=== PATIENT | female | born 1960 | race Caucasian/White ===

== ENCOUNTER 2016-08-22 13:36 | Emergency (ER) | payer OTHER ==
[2016-08-22 13:42] VITALS: TEMP 98.1
--- NOTE | 2016-08-22 13:52 | CPEKG ---
Heart Rate: 113 RR Interval: 531 P-R Interval: 184 QRSD Interval: 76 QT Interval: 320 QTC Interval: 439 P [place]: 62 QRS [place]: 16 T Wave [place]: 16 EKG Severity - OTHERWISE NORMAL ECG - EKG Impression: SINUS TACHYCARDIA Electronically Signed By: Robbie Loera 22-Aug-2016 14:25:18
[2016-08-22 14:07] LABS: % IMMATURE GRANULYOCYTES 0.1 % (0.0-1.1); ABSOLUTE IMMATURE GRANULOCYTES 0.01 10^3/uL (0.00-0.10); ADD DIFF? NO; ADD MORPH? NO; ADD SCAN? NO; ATYPICAL LYMPHOCYTE FLAG 10 (0-99); FRAGMENT RBC FLAG 0 (0-99); HEMATOCRIT 45.7 % (38.0-47.0); HEMOGLOBIN 15.6 g/dL (12.6-16.3); LEFT SHIFT FLG 0 (0-99); LIPEMIA HEMOLYSIS FLAG 90 (0-99); MEAN CELL HEMOGLOBIN 33.2 pg (27.9-34.1); MEAN CELL HEMOGLOBIN CONCENTR. 34.1 g/dL (32.4-36.7); MEAN CELL VOLUME 97.2 fL (81.5-99.8); MEAN PLATELET VOLUME 8.7 fL (8.7-11.7); PLATELET CLUMPS FLAG 0 (0-99); PLATELET COUNT 376 10^3/uL (150-400); RED CELL DISTRIBUTION WIDTH 12.9 % (11.5-15.2)
[2016-08-22 14:24] LABS: ANION GAP 12 mEq/L (8-16); CALCIUM 10.3 mg/dL (8.5-10.4); CARBON DIOXIDE 23 mEq/l (22-31); CHLORIDE 103 mEq/L (97-110); CREATININE 0.7 mg/dL (0.6-1.0); GLOMERULAR FILTRATION RATE > 60; GLUCOSE 116 mg/dL (70-100); POTASSIUM 4.1 mEq/L (3.5-5.2); SODIUM 138 mEq/L (134-144)
--- NOTE | 2016-08-22 14:24 | EDPHY ---
H & P Stated Complaint: Chest tightness intermittently for several weeks Time Seen by Provider: 08/22/16 13:38 HPI/ROS: CHIEF COMPLAINT: Dyspnea, chest tightness HISTORY OF PRESENT ILLNESS: The patient presents to the emergency department with several weeks of intermittent dyspnea and chest tightness. The patient reports a history of atraumatic left knee pain several weeks ago. She did see her primary care provider who attributed the symptoms to a possible sprain. The patient denies fever cough or congestion. She reports that today her symptoms worsened. The patient denies pleuritic chest pain. She denies any ongoing knee pain. Patient has no history of cardiac disease. The patient denies recent travel outside the [place] or prolonged immobilization. REVIEW OF SYSTEMS: A comprehensive 10 point review of systems is otherwise negative aside from elements mentioned in the history of present illness. Source: Patient Exam Limitations: No limitations - Personal History Current Tetanus Diphtheria and Acellular Pertussis (TDAP): Yes - Medical/Surgical History Other PMH: HTN - Social History Smoking Status: Never smoked - Physical Exam Exam: General Appearance: Alert, no distress Eyes: Pupils equal and round no pallor or injection ENT, Mouth: Mucous membranes moist Respiratory: There are no retractions, lungs are clear to auscultation Cardiovascular: Regular rate and rhythm Gastrointestinal: Abdomen is soft and nontender, no masses, bowel sounds normal Neurological: A&O, normal motor function, normal sensory exam, normal cranial nerves Skin: Warm and dry, no rashes Musculoskeletal: Neck is supple nontender Extremities: symmetrical, full range of motion Constitutional: Initial Vital Signs Temperature (C) 36.7 C 08/22/16 13:37 Heart Rate 101 H 08/22/16 13:37 Respiratory Rate 18 08/22/16 13:37 Blood Pressure 139/107 H 08/22/16 13:37 O2 Sat (%) 94 08/22/16 13:37 O2 Delivery Mode Nasal Cannula O2 (L/minute) 2 Allergies/Adverse Reactions: some B P med Allergy (Unknown, Uncoded 08/22/16 13:39) Home Medications: Medication Instructions Recorded Aspirin [Aspirin 81mg (*)] 81 mg PO DAILY 08/22/16 Lisinopril [Zestril 20 mg (*)] 20 mg PO 08/22/16 Medical Decision Making - Diagnostics EKG Interpretation: EKG: Complete interpretation has been separately recorded in the [facility] archive. Summary impression: Sinus tachycardia, rate 113 Imaging: CT pulmonary angiogram: Negative for aortic dissection, pulmonary embolism, pneumonia, pneumothorax or other explanation for chest pain. Study results reported to me by Dr. Narendra Kaur ED Course/Re-evaluation: The patient presents to the ED for weeks of intermittent chest pain and dyspnea. The patient did have a slightly elevated D-dimer but has a negative CT pulmonary angiogram. The patient's EKG demonstrates no evidence of ischemia and her troponin is normal. The patient does endorse some symptoms of anxiety. The patient was kept on a radiation monitor throughout her stay in the emergency department at this point time I have a low suspicion for acute coronary syndrome. Patient's chest CT scan demonstrates no evidence of heart failure, the patient' s proBNP level is negative. The patient was re-evaluated by myself at 3:30 p.m. and is in no acute distress. The patient's vital signs are stable. At this point time I do feel that she can be discharged home. Differential Diagnosis: Differential diagnosis considered includes pulmonary embolism, acute coronary syndrome, anxiety, dehydration, metabolic abnormality - Data Points Laboratory Results: Laboratory Results 08/22/16 13:52 08/22/16 13:52 08/22/16 13:52 WBC 8.10 10^3/uL (3.80-9.50) RBC 4.70 10^6/uL (4.18-5.33) Hgb 15.6 g/dL (12.6-16.3) Hct 45.7 % (38.0-47.0) MCV 97.2 fL (81.5-99.8) MCH 33.2 pg (27.9-34.1) MCHC 34.1 g/dL (32.4-36.7) RDW 12.9 % (11.5-15.2) Plt Count 376 10^3/uL (150-400) MPV 8.7 fL (8.7-11.7) Neut % (Auto) 52.9 % (39.3-74.2) Lymph % (Auto) 34.7 % (15.0-45.0) [place] % (Auto) 10.0 % (4.5-13.0) Eos % (Auto) 1.7 % (0.6-7.6) Baso % (Auto) 0.6 % (0.3-1.7) Nucleat RBC Rel Count 0.0 % (0.0-0.2) Absolute Neuts (auto) 4.28 10^3/uL (1.70-6.50) Absolute Lymphs (auto) 2.81 10^3/uL (1.00-3.00) Absolute Monos (auto) 0.81 H 10^3/uL (0.30-0.80) Absolute Eos (auto) 0.14 10^3/uL (0.03-0.40) Absolute Basos (auto) 0.05 10^3/uL (0.02-0.10) Absolute Nucleated RBC 0.00 10^3/uL (0-0.01) Immature Gran % 0.1 % (0.0-1.1) Immature Gran # 0.01 10^3/uL (0.00-0.10) D-Dimer 0.56 H ug/mLFEU (0.00-0.50) Sodium 138 mEq/L (134-144) Potassium 4.1 mEq/L (3.5-5.2) Chloride 103 mEq/L (97-110) Carbon Dioxide 23 mEq/l (22-31) Anion Gap 12 mEq/L (8-16) BUN 15 mg/dL (7-23) Creatinine 0.7 mg/dL (0.6-1.0) Estimated GFR > 60 Glucose 116 H mg/dL (70-100) Calcium 10.3 mg/dL (8.5-10.4) Troponin I < 0.012 ng/mL (0-0.034) NT-Pro-B Natriuret Pep 60 pg/mL (0-125) Departure - Departure Disposition: Home, Routine, Self-Care Clinical Impression: Chest pain Condition: Good Instructions: Chest Pain (ED) Additional Instructions: 1. Based upon the testing done in the Emergency Department today we see no evidence of a heart attack. 2. We are unable to fully exclude coronary artery disease based upon the testing available in the Emergency Department. 3. For this reason, we would like you to be seen by cardiology for consideration of additional testing within the next 3 days. 4. Please contact the account development manager you have been referred to schedule this appointment as soon as possible. Their offices are typically open from 8:30am- 5pm M-F. 5. Please return to the Emergency Department immediately for any recurrent chest pain, difficulty breathing or other concerns. Referrals: Aidan Funes MD [Medical Doctor] - As per Instructions
[2016-08-22 14:35] LABS: TROPONIN I < 0.012 ng/mL (0-0.034)
[2016-08-22] MEDS ORDERED: IOPAMIDOL (ISOVUE 370) 100 ML BTL IV ONE (14:56)
--- NOTE | 2016-08-22 15:31 | CT ---
CT Chest Angiogram Comparison: None Indication: Chest pain. Possible PE. D-dimer 0.56. Technique: Thinly collimated multidetector helical CT imaging was performed through the chest while 90 mL of Isovue-370 were injected intravenously without complication. The images were then transferr ed to an independent workstation where multiplanar reconstructions were performed. Dose reduction guillaume hniques were utilized. Findings: CT Chest Angiogram: The pulmonary arterial system is well opacified. No intraluminal filling defect s to suggest acute or chronic thrombopulmonary embolic disease. The thoracic aorta is normal caliber . No aneurysm or dissection. CT Chest: The lungs are clear. No pulmonary nodule, mass, or enlarged lymph nodes. Heart size is nor mal. No pericardial or pleural effusion. Mild degenerative change thoracic spine. The imaged portion of the upper abdomen is negative. Impression: 1. No evidence of thrombopulmonary embolic disease. 2. Mild degenerative change thoracic spine. Results called and discussed with Robbie Loera at 08/22/2016 15:29
[2016-08-22 15:47] VITALS: BP 149/116; PULSE 106; RESP 14; O2SAT 92
== END 2016-08-22 15:47 | disposition home or self-care (01) ==
DX: R07.9 Chest pain, unspecified (principal); I10 Essential (primary) hypertension; Z79.82 Long term (current) use of aspirin
CPT/HCPCS: Q9967

== ENCOUNTER 2016-08-31 11:18 | Inpatient (IN) | payer OTHER ==
--- NOTE | 2016-08-31 11:33 | CPEKG ---
Heart Rate: 112 RR Interval: 536 P-R Interval: 164 QRSD Interval: 80 QT Interval: 316 QTC Interval: 432 P [place]: 59 QRS [place]: 4 T Wave [place]: 18 EKG Severity - ABNORMAL ECG - EKG Impression: SINUS TACHYCARDIA EKG Impression: VENTRICULAR PREMATURE COMPLEX EKG Impression: PROBABLE LEFT ATRIAL ABNORMALITY EKG Impression: BORDERLINE R WAVE PROGRESSION, ANTERIOR LEADS EKG Impression: MINIMAL ST DEPRESSION, ANTEROLATERAL LEADS EKG Impression: similar to previous Electronically Signed By: Lázaro Reddy 31-Aug-2016 11:43:11
[2016-08-31] MEDS ORDERED: NS 500 ML IV ONE (11:38)
[2016-08-31 11:47] LABS: % IMMATURE GRANULYOCYTES 0.3 % (0.0-1.1); ABSOLUTE IMMATURE GRANULOCYTES 0.02 10^3/uL (0.00-0.10); ADD DIFF? NO; ADD MORPH? NO; ADD SCAN? NO; ATYPICAL LYMPHOCYTE FLAG 0 (0-99); FRAGMENT RBC FLAG 0 (0-99); HEMATOCRIT 48.5 % (38.0-47.0); HEMOGLOBIN 16.4 g/dL (12.6-16.3); LEFT SHIFT FLG 0 (0-99); LIPEMIA HEMOLYSIS FLAG 90 (0-99); MEAN CELL HEMOGLOBIN 34.1 pg (27.9-34.1); MEAN CELL HEMOGLOBIN CONCENTR. 33.8 g/dL (32.4-36.7); MEAN CELL VOLUME 100.8 fL (81.5-99.8); PLATELET CLUMPS FLAG 10 (0-99); PLATELET COUNT 356 10^3/uL (150-400); RED BLOOD CELL COUNT 4.81 10^6/uL (4.18-5.33); RED CELL DISTRIBUTION WIDTH 13.2 % (11.5-15.2)
[2016-08-31] MEDS ORDERED: IOPAMIDOL (ISOVUE 370) 100 ML BTL IV ONE (11:48)
--- NOTE | 2016-08-31 11:49 | EDPHY ---
H & P Stated Complaint: chest pressure/seen last week for same Source: Patient, Old records Exam Limitations: No limitations - Personal History Current Tetanus/Diphtheria Vaccine: Yes - Medical/Surgical History Hx Asthma: No Hx Chronic Respiratory Disease: No Hx Diabetes: No Hx Cardiac Disease: No Hx Renal Disease: No Hx Cirrhosis: No Hx Alcoholism: No Hx HIV/AIDS: No Hx Splenectomy or Spleen Trauma: No Other PMH: HTN - Social History Smoking Status: Never smoked HPI/ROS: CHIEF COMPLAINT: Chest Pain HISTORY OF PRESENT ILLNESS: Chest pressure FAMILY HISTORY CARDIAC: sudden onset of chest pressure this morning at 6:30 a.m.. She was walking her dog. It was a moderate pain, radiated to her back. Was worse with exertion. Some nausea and diaphoresis. No vomiting. Some shortness of breath. She feels as though there is congestion in her chest. She had no numbness or tingling. No abdominal or urinary complaints. She was feeling flushed at the time. She was seen here on August 22 for the same complaint and discharged home with instructions to follow up with cinder pit worker. She has an appointment on September [address] Cortez but has not yet seen a cinder pit worker. No other associated complaints or modifying factors. hypertension without diabetes or known coronary artery disease. PRIOR CARDIAC WORKUP: ED only, August 22 REVIEW OF SYSTEMS: Ten systems reviewed and are negative unless otherwise noted in the HPI EXAMINATION: General Appearance: Alert, no distress , flushed Head: normocephalic, atraumatic Eyes: Pupils equal and round, no conjunctival pallor or injection ENT, Mouth: Mucous membranes moist. Uvula midline. No lesions or edema. Neck: Normal inspection, supple, non-tender Respiratory: Lungs are clear in the right field. Lungs are mildly diminished on the left. No wheezing, rhonchi or crackles. Cardiovascular: Tachycardic rate with regular rhythm. Gastrointestinal: Abdomen is soft and nontender . No CVA tenderness. Back: non-tender, no bony abnormalities Neurological: A&O, nonfocal, normal gait , strength symmetric in all limbs. Skin: Warm and dry, no rash Extremities: Nontender, no pedal edema Psychiatric: Mood and affect normal DIFFERENTIAL DIAGNOSES: Including but not limited to in no particular order: Acute Chest Pain, ACS, Stable Angina, Pneumonia, PE, duodenitis, gastritis, esophagitis, GERD MDM: 11:45 a.m. chest pain with some pressure and worse with exertion. The patient is hemodynamically stable in no acute distress. She is tachycardic. EKG has been reviewed by Dr. Reddy and myself. There is no acute finding. She does have some mild ST depression in the anterolateral leads, this is unchanged from previous EKG on August 22. Given her tachycardia and symptoms, we have ordered CT scan of the chest rule out PE. I-STAT has been done at bedside with a normal creatinine of 0.7, and she will be taken to CT as soon as possible. 12:30 p.m. laboratory studies are within normal limits. The CT scan of the chest has been performed but the interpretation is pending at this time. 12:45 p.m. notified by radiologist Dr. Cain that there is no evidence of PE on the CT scan of the chest. There is mild cardiomegaly. No other acute findings. Patient remains tachycardic but otherwise stable. Mild hypertension. Chest pain is present but unchanged. Labs are negative. Will proceed with admission and echocardiography 1:00 p.m. case discussed with hospitalist and she will be admitted to their care. Echo is pending at this time 2:00 p.m case discussed with [facility] and they will interpret the echocardiogram and see the patient in her inpatient room. EKG: Interpreted by Dr. Reddy rate is 112 beats per minute, sinus tachycardia. PVC noted. Mild ST depression in V3 through V6 unchanged from August [address] elevation. T-wave inversion only in AVR. Interpretation: Sinus tachycardia, anterolateral ST depression, PC SUPERVISION: Patient was evaluated in conjunction with the supervising physician. Please see their note for details. (Miguel Trent) Constitutional: Initial Vital Signs Temperature (C) 36.7 C 08/31/16 11:21 Heart Rate 102 H 08/31/16 11:21 Respiratory Rate 20 08/31/16 11:21 Blood Pressure 156/120 H 08/31/16 11:21 O2 Sat (%) 96 08/31/16 11:21 O2 Delivery Mode Room Air O2 (L/minute) 2 Allergies/Adverse Reactions: some B P med Allergy (Unknown, Uncoded 08/31/16 11:20) Home Medications: Medication Instructions Recorded Aspirin [Aspirin 81mg (*)] 81 mg PO HS 08/22/16 Lisinopril [Zestril 20 mg (*)] 20 mg PO DAILY 08/22/16 ALPRAZolam [Xanax 0.5 MG (*)] 0.5 mg PO DAILY PRN 08/31/16 Cholecalciferol Vit D3 [Vitamin D3 5,000 units PO HS 08/31/16 (*)] Medical Decision Making Differential Diagnosis: Differential diagnosis includes though it is not limited to pneumonia, pneumothorax, pulmonary embolism, aortic dissection, pericarditis, acute coronary syndrome. (Mey Cano) Other Provider: 1302: This patient was seen and examined by me.On exam she is alert and anxious. Lungs are clear to auscultation and heart- regular tachycardia. EKG reviewed by me reveals no evidence of ischemia. I agree with the PA's assessment. (Mey Cano) - Data Points Laboratory Results: Laboratory Results 08/31/16 11:30 08/31/16 11:30 08/31/16 08/31/16 08/31/16 11:38 11:30 11:30 WBC RBC Hgb POC Hgb 16.0 gm/dL H gm/dL (12.3-15.9) Hct POC Hct 47 % % (35.5-47.5) MCV MCH MCHC RDW Plt Count MPV Neut % (Auto) Lymph % (Auto) [place] % (Auto) Eos % (Auto) Baso % (Auto) Nucleat RBC Rel Count Absolute Neuts (auto) Absolute Lymphs (auto) Absolute Monos (auto) Absolute Eos (auto) Absolute Basos (auto) Absolute Nucleated RBC Immature Gran % Immature Gran # PT INR APTT POC Sodium 139 mEq/L mEq/L (134-144) Sodium 142 mEq/L mEq/L (134-144) POC Potassium 4.7 mEq/L mEq/L (3.3-5.0) Potassium 4.4 mEq/L mEq/L (3.5-5.2) POC Chloride 104 mEq/L mEq/L (96-108) Chloride 103 mEq/L mEq/L (97-110) Carbon Dioxide 26 mEq/l mEq/l (22-31) Anion Gap 13 mEq/L mEq/L (8-16) POC BUN 16 mg/dL mg/dL (7-23) BUN 13 mg/dL mg/dL (7-23) Creatinine 0.8 mg/dL mg/dL (0.6-1.0) POC Creatinine 0.7 mg/dL mg/dL (0.6-1.2) Estimated GFR > 60 Glucose 100 mg/dL mg/dL (70-100) POC Glucose 99 mg/dL mg/dL (70-100) Calcium 9.9 mg/dL mg/dL (8.5-10.4) Total Bilirubin 0.9 mg/dL mg/dL (0.1-1.4) Conjugated Bilirubin 0.4 mg/dL mg/dL (0.0-0.5) Unconjugated Bilirubin 0.5 mg/dL mg/dL (0.0-1.1) AST 45 IU/L IU/L (14-46) ALT 60 IU/L H IU/L (9-52) Alkaline Phosphatase 110 IU/L IU/L (38-126) Creatine Kinase 84 IU/L IU/L (0-156) CK-MB (CK-2) Fraction 1.21 ng/mL ng/mL (0-3.19) Troponin I < 0.012 ng/mL ng/mL (0-0.034) NT-Pro-B Natriuret Pep 101 pg/mL pg/mL (0-125) Total Protein 8.6 g/dL H g/dL (6.3-8.2) Albumin 4.6 g/dL g/dL (3.5-5.0) Lipase 148.0 IU/L IU/L (23-300) TSH 1.790 uIU/mL uIU/mL (0.465-4.680) 08/31/16 08/31/16 11:30 11:30 WBC 7.65 10^3/uL 10^3/uL (3.80-9.50) RBC 4.81 10^6/uL 10^6/uL (4.18-5.33) Hgb 16.4 g/dL H g/dL (12.6-16.3) POC Hgb Hct 48.5 % H % (38.0-47.0) POC Hct MCV 100.8 fL H fL (81.5-99.8) MCH 34.1 pg pg (27.9-34.1) MCHC 33.8 g/dL g/dL (32.4-36.7) RDW 13.2 % % (11.5-15.2) Plt Count 356 10^3/uL 10^3/uL (150-400) MPV 9.0 fL fL (8.7-11.7) Neut % (Auto) 60.3 % % (39.3-74.2) Lymph % (Auto) 27.6 % % (15.0-45.0) [place] % (Auto) 9.4 % % (4.5-13.0) Eos % (Auto) 1.6 % % (0.6-7.6) Baso % (Auto) 0.8 % % (0.3-1.7) Nucleat RBC Rel Count 0.0 % % (0.0-0.2) Absolute Neuts (auto) 4.62 10^3/uL 10^3/uL (1.70-6.50) Absolute Lymphs (auto) 2.11 10^3/uL 10^3/uL (1.00-3.00) Absolute Monos (auto) 0.72 10^3/uL 10^3/uL (0.30-0.80) Absolute Eos (auto) 0.12 10^3/uL 10^3/uL (0.03-0.40) Absolute Basos (auto) 0.06 10^3/uL 10^3/uL (0.02-0.10) Absolute Nucleated RBC 0.00 10^3/uL 10^3/uL (0-0.01) Immature Gran % 0.3 % % (0.0-1.1) Immature Gran # 0.02 10^3/uL 10^3/uL (0.00-0.10) PT 12.3 SEC SEC (12.0-15.0) INR 0.92 (0.83-1.16) APTT 27.0 SEC SEC (23.0-38.0) POC Sodium Sodium POC Potassium Potassium POC Chloride Chloride Carbon Dioxide Anion Gap POC BUN BUN Creatinine POC Creatinine Estimated GFR Glucose POC Glucose Calcium Total Bilirubin Conjugated Bilirubin Unconjugated Bilirubin AST ALT Alkaline Phosphatase Creatine Kinase CK-MB (CK-2) Fraction Troponin I NT-Pro-B Natriuret Pep Total Protein Albumin Lipase TSH Medications Given: Discontinued Medications Sodium Chloride (Ns) 500 mls @ 0 mls/hr IV ONCE ONE PRN Reason: As Directed Stop: 08/31/16 11:39 Last Admin: 08/31/16 11:49 Dose: 500 mls Morphine Sulfate (Morphine) 6 mg IVP EDNOW ONE Stop: 08/31/16 13:13 Last Admin: 08/31/16 13:27 Dose: 6 mg Ondansetron HCl (Zofran) 4 mg IVP EDNOW ONE Stop: 08/31/16 13:14 Last Admin: 08/31/16 13:27 Dose: 4 mg Point of Care Test Results: 08/31/16 11:38 POC Sodium 139 POC Potassium 4.7 POC Chloride 104 POC BUN 16 POC Creatinine 0.7 POC Glucose 99 Departure - Departure Disposition: [facility] Inpatient Acute Clinical Impression: Chest pain Qualifiers: Chest pain type: precordial pain Qualified Code(s): R07.2 - Precordial pain Condition: Fair
[2016-08-31 12:00] LABS: ALANINE AMINOTRANSFERASE 60 IU/L (9-52); ALBUMIN 4.6 g/dL (3.5-5.0); ALKALINE PHOSPHATASE 110 IU/L (38-126); ANION GAP 13 mEq/L (8-16); ASPARTATE AMINOTRANSFERASE 45 IU/L (14-46); BILIRUBIN,TOTAL 0.9 mg/dL (0.1-1.4); BILIRUBIN-CONJUGATED 0.4 mg/dL (0.0-0.5); BILIRUBIN-UNCONJUGATED 0.5 mg/dL (0.0-1.1); CALCIUM 9.9 mg/dL (8.5-10.4); CARBON DIOXIDE 26 mEq/l (22-31); CHLORIDE 103 mEq/L (97-110); CREATININE 0.8 mg/dL (0.6-1.0); GLOMERULAR FILTRATION RATE > 60; GLUCOSE 100 mg/dL (70-100); POTASSIUM 4.4 mEq/L (3.5-5.2); SODIUM 142 mEq/L (134-144); TOTAL PROTEIN 8.6 g/dL (6.3-8.2)
[2016-08-31 12:02] LABS: INR 0.92 (0.83-1.16); PROTIME(PATIENT) 12.3 SEC (12.0-15.0)
[2016-08-31 12:12] LABS: CREATINE KINASE-MB FRACTION 1.21 ng/mL (0-3.19); TROPONIN I < 0.012 ng/mL (0-0.034)
[2016-08-31] MEDS ORDERED: ONDANSETRON 4 MG/2 ML VIAL IVP ONE (13:13)
--- NOTE | 2016-08-31 14:07 | ECHO ---
[id number] + + [address] : : [place] [address] : : [phone] + Adult Echocardiographic Report + -----+ :Name: Izabella CHAVEZ Date: 08/31/2016 01:43 PM : : Hospital Admission Number: [id number]: ER: :: 1960 Gender: Female Height: 65 in : :Age: 56 yrs Race: WH Weight: 190 lb : :Reason For Study: Eval LV Fx : : BSA: 1.9 meters 2 : :History: Chest Pain, SVT, Cardiomegally on CT : + -----+ MMode/2D Measurements \T\ Calculations IVSd: 1.3 cm LVIDd: 4.2 cm FS: 41.8 % Ao root diam: 2.7 cm LVPWd: 1.2 cm LVIDs: 2.4 cm EDV(Teich): 76.8 ml ACS: 1.6 cm ESV(Teich): 20.6 ml EF(Teich): 73.2 % Normal Measurement Values: + + :LVIDd (3.5-5.7cm) IVSd (0.6-1.1cm) LVPWd (0.6-1.1cm) Aortic Root (2.0-3.7cm)Left Atrium (1.5-4.0cm): :LV Vol(d) (76-115ml) LV Vol(s) (29-48ml) Ejec Fraction (50-65%)PV Lm (0.6- 1.2m/s) TV Lm (0.4-1.0m/s) : :MV E Lm (0.8-1.0m/s)MV A Lm (0.3-1.0m/s)LVOT Lm (0.7-1.2m/s) Asc Ao Lm ( 0.9-1.8m/s) : + + Doppler Measurements \T\ Calculations MV E max lm: Ao V2 max: LV V1 max: PA V2 max: 64.2 cm/sec 160.0 cm/sec 88.8 cm/sec 115.0 cm/sec MV A max lm: Ao max PG: LV V1 max PG: PA max P.3 mmHg 94.8 cm/sec 10.2 mmHg 3.2 mmHg MV E/A: 0.68 Left Ventricle The left ventricle is normal in size. There is mild to moderate concentric left ventricular hypertrophy. The left ventricular ejection fraction is normal. There is Doppler evidence for diastolic dysfunction. Tachycardia. No regional wall motion abnormalities noted. Right Ventricle The right ventricle is normal in size and function. Atria The left atrial size is normal. Right atrial size is normal. Mitral Valve The mitral valve is normal in structure and function. There is no evidence of mitral valve prolapse. There is no mitral valve stenosis. There is no mitral regurgitation noted. Tricuspid Valve Normal tricuspid valve. No tricuspid regurgitation. Aortic Valve The aortic valve is normal in structure and function. The aortic valve is trileaflet. There is no aortic stenosis. There is no aortic insufficiency. Pulmonic Valve The pulmonic valve is normal in structure and function. There is no pulmonic valvular regurgitation. Great Vessels The aortic root is normal size. Pericardium/Pleural There is no pericardial effusion. Conclusion A complete two-dimensional transthoracic echocardiogram was performed (2D, M-mode, Doppler and color flow Doppler). There is mild to moderate concentric left ventricular hypertrophy. The left ventricular ejection fraction is normal. There is Doppler evidence for diastolic dysfunction. Tachycardia No regional wall motion abnormalities noted. The right ventricle is normal in size and function. The left atrial size is normal. The mitral valve is normal in structure and function. Normal tricuspid valve The aortic valve is normal in structure and function. The aortic valve is trileaflet. There is no pericardial effusion. Final Reading Physician: Albino Briones signed on 08/31/2016 02:04 PM Ordering Physician: Miguel Trent Performed By: Kyler Traore, CS
[2016-08-31] MEDS ORDERED: ACETAMINOPHEN 325 MG TAB PO PRN (15:32)
[2016-08-31 16:35] LABS: PHENCYCLIDINE URINE BCH < 6 ng/ml (NEGATIVE); PHENCYCLIDINE URINE BCH NEGATIVE (NEGATIVE); TETRAHYDROCANNABINOL URINE < 5 ng/mL (NEGATIVE); TETRAHYDROCANNABINOL URINE NEGATIVE (NEGATIVE)
--- NOTE | 2016-08-31 16:46 | CPEKG ---
Heart Rate: 102 RR Interval: 588 P-R Interval: 172 QRSD Interval: 76 QT Interval: 328 QTC Interval: 428 P [place]: 58 QRS [place]: 19 T Wave [place]: 16 EKG Severity - OTHERWISE NORMAL ECG - EKG Impression: SINUS TACHYCARDIA EKG Impression: VENTRICULAR PREMATURE COMPLEX Electronically Signed By: Kashif Crandall 31-Aug-2016 19:52:32
--- NOTE | 2016-08-31 19:55 | GCON ---
[f rep st] CONSULTATION CARDIOLOGY CONSULTATION. SUPERVISING CONSTRUCTION RIGGER: Dr. Justyn Cortez. INDICATION FOR CARDIOLOGY CONSULTATION: Chest pressure, ongoing history of hypertension. HISTORY OF PRESENT ILLNESS: The patient is a 56-year-old female with a reported past history of anxiety and hypertension. She reports ongoing history of anxiety with shortness of breath. Reporting recently experiencing midsternal chest pressure, with tingling in her hands. She reports usually it comes on spontaneously, lasts for few minutes and dissipates. This had concerned her. She reported her first episode has been happening for week or 2 , on August 22, this had concerned her so much, that she did come to the emergency department here at [facility]. There she underwent an electrocardiogram which showed sinus tachycardia with no significant ST or T- wave abnormalities. She did undergo CTA of the chest which was negative for pulmonary embolism, normal thoracic aorta with no aneurysm or dissection. She had laboratory studies drawn, noting normal troponin level. After her workup, her symptoms subsided, she was discharged home and asked to follow up with her PCP and Cardiology. Waiting for appointment, she reports that she has had a few more episodes of this chest pressure, with mild shortness of breath. Reporting worst episode happened today. She describes the pain as a pressure midsternal. She denies any associated symptoms of nausea, diaphoresis, or shortness of breath. Does report tingling in the left hand when symptoms recur. She reported today symptoms started after she had been resting from walking. She reported no symptoms during exertion. She denies of any history of palpitations, orthopnea, PND, edema, near-syncope, or syncopal events. Denies of any symptoms suggestive of TIA or CVA. Denies of any recent fevers, chills, night sweats, or cold. She reports symptoms usually start spontaneously. Cardiac risk factors, the patient reports hypertension, unsure of her cholesterol status, and denies of any significant family history of coronary artery disease. PAST MEDICAL HISTORY: The patient reports hypertension, anxiety. The patient reports that she had been evaluated for thrombocythemia, had seen Hematology, and when evaluated, the platelet count was within normal limits, advised to stay on aspirin therapy. FAMILY HISTORY: Patient denies of any significant family history of coronary artery disease. SOCIAL HISTORY: The patient reports she is . She has 2-3 drinks a week. Denies of any smoking history. 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 Denies of any tobacco use, denies of any illicit drug use. ALLERGIES: Patient reports she is allergic to some BP medications but is uncertain. HOME MEDICATIONS: 1. Lisinopril 20 mg p.o. daily. 2. Vitamin D 5000 units p.o. h.s. 3. Aspirin 81 mg p.o. daily. 4. Xanax 0.5 mg p.o. daily. REVIEW OF SYSTEMS: A 10-point review of systems on this patient all negative, except as mentioned above. PHYSICAL EXAMINATION: GENERAL APPEARANCE: Medium build, mildly obese, female. She is alert oriented to person, place, time, and situation. Appears to be under no acute distress. VITAL SIGNS: Current blood pressure is 130/70, heart rate is 108, sinus tachycardia on the monitor. Respirations 20. Saturating 96% on 2 L nasal cannula. Temperature was 36.8 degree Celsius at 1:27 today. HEENT: Head is normocephalic. The lips and tongue are pink and moist with no signs of cyanosis. Conjunctivae pink. NECK: Trachea is midline, +2 carotid pulses bilateral, no auscultated bruits, no jugular vein distention. LUNGS: Clear to auscultation, no rhonchi, rales or wheezes, no accessory muscle use, no intercostal muscle retraction. CARDIAC: Regular rate , regular rhythm, S1, S2, no S3, S4 noted. No gallops, rubs or murmur noted. ABDOMEN: Soft, nontender, bowel sounds x4 quadrants. No organomegaly and no palpable masses. SKIN: [place], warm, dry, no cyanosis, no clubbing. No peripheral edema. VASCULAR: +2 radials bilateral, +2 posterior tibial pulses bilateral, +2 carotids bilateral. NEURO: Cranial nerves 2-12 grossly intact. LABORATORY STUDIES: Current laboratory studies show WBC of 7.65, hemoglobin of 16.4, hematocrit of 48.5, platelet count 356. INR 0.92. Sodium 142, potassium 4.4, chloride 103, CO2 26, BUN 13, creatinine 0.8, glucose 100, calcium 9.9, total bilirubin 0.9, AST 45, ALT 60, alkaline phosphate 110. CK 84, CK-MB fraction 1.2, proBNP 101, total protein 8.6, albumin 4.6, lipase 148, TSH 1.79. She has had drug tox screen done which showed positive for opiates and benzo, negative for everything else. DIAGNOSTIC STUDIES: Repeated CTA of the chest done today shows no pulmonary embolism, no evidence of aneurysm or dissection. Electrocardiogram done at 1644 shows sinus tachycardia, normal axis, single premature ventricular contraction. No acute ST, noted to have flattened inverted T-waves in lead III. Echocardiogram done on admission showed [id number] concentric LVH, EF of 73.2%, diastolic dysfunction, no regional wall motion abnormalities, no other significant structural heart disease, no pericardial effusion. ASSESSMENT AND PLAN: 1. Chest pressure. The patient reporting spontaneous episodes of chest pressure. Electrocardiogram showing no acute changes suggesting ischemia. The troponins have been negative. CTA of chest negative for PE and dissection and aneurysm. The patient reports chest pressure comes on spontaneously with associated symptoms of tingling in hand, somewhat atypical for cardiac ischemia but due to her ongoing episodes, felt best that she be evaluated for cardiac ischemia. She has been scheduled for an exercise treadmill testing to be done tomorrow morning. We will also monitor her troponin levels tonight. She is currently pain-free. She had an aspirin in the emergency department. 2. Hypertension. Patient noted to be hypertensive on arrival, blood pressure within normal limits on arrival. Will continue to monitor. If necessary, we will reinstitute her lisinopril. 3. Tachycardia. The patient noted to be tachycardic on both emergency department visits. Her TSH was within normal limits, and she has had no abnormal electrolyte or renal function. No anemia. I agree with Dr. Graham, to evaluate for catecholamine, check for Pheo. 4. Left ventricular hypertrophy. Will adjust BP medications as needed. Pending on results of blood testing, may start on beta-kota, possibly carvedilol. Thank you for this consultation. We will be glad to follow along with you. /[id number]/MODL MTDD
[2016-08-31] MEDS ORDERED: ONDANSETRON DISINTEGRATING 4 MG TAB ONE (20:18)
[2016-09-01] MEDS ORDERED: ONDANSETRON DISINTEGRATING 4 MG TAB ONE (05:23)
[2016-09-01] MEDS ORDERED: ALPRAZolam 0.25 MG TAB PO PRN (05:54)
[2016-09-01] MEDS: LISINOPRIL 20 MG TAB PO SCH ×2 (06:03→10:05)
[2016-09-01] MEDS ORDERED: REGADENOSON 0.4 MG/5 ML SYR IVP ONE (11:57)
--- NOTE | 2016-09-01 15:13 | CPR ---
[f rep st] NONINVASIVE CARDIAC PROCEDURE REPORT PROCEDURE: Exercise treadmill test of exercise treadmill myocardial perfusion imaging study. PRE: After obtaining informed consent, ensuring patient's n.p.o. status of caffeine for greater vasquez n 12 hours, patient was placed on electrocardiogram. Initial EKG shows sinus tachycardia, normal ax is, no ST- or T-wave abnormalities suggesting of ischemia, noted single premature ventricular contra ction. Patient denies of any chest pain or symptoms suggesting of ischemia. Initial blood pressure 148/90. Initial heart rate at 120 beats per minute when initially hooked up, dropped down to 110 beats per minute. STRESS: Following standard Yosef protocol, patient was placed on exercise treadmill. She exercised for the following findings: 1. Exercised for 6 minutes. 2. 7.2 METS. 3. Heart rate obtained was 152 beats per minute, which was 92% of MPHR. 4. Patient had no ST changes at peak exercise to suggest ischemia. 5. Patient had no chest pressure or symptoms suggesting of ischemia throughout testing. 6. Patient was noted to have occasional premature ventricular contractions in all 3 phases; rest, s tress and recovery. 7. Patient's BP variations at rest 148/90, at peak exercise 166/94. 8. Peak exercise, patient's SpO2 did drop to 97%. 9. The test was stopped due to maximum effort. 10. Henderson treadmill score of 6, placing patient at low cardiovascular risk. RECOVERY: Patient recovered for 5 minutes, returning her heart rate back to baseline around 110 lalo ts per minute. Again, no electrocardiogram changes. She remained asymptomatic of symptoms suggesti ng of ischemia. Within 1 minute of recovery, her SpO2 returned back to 92%. Blood pressure also re turned back to preexercise state within 5 minutes. Occasional premature ventricular contraction not ed in recovery. IMPRESSION: A 56-year-old female with episodes of chest pressure, hypertension, and sinus tachycard ia, undergoing exercise treadmill testing for exercise treadmill/MPI study for testing for cardiac i schemia. No symptoms of chest pressure or pain on treadmill. No ST changes at peak exercise sugges ting of ischemia. The patient did note at peak exercise with dropping her SpO2 down to 87%, which r eturned back to normal within 2 minutes of recovery. Henderson treadmill score of 6, placing patient at low cardiovascular risk. Patient is being sent down to Nuclear Medicine, vital signs are stable, fo r poststress MPI imaging. /[id number]/MODL
[2016-09-01] MEDS ORDERED: TEMAZEPAM 15 MG CAP PO PRN (15:27)
--- NOTE | 2016-09-01 16:19 | PDCARPN ---
Cardiology Progress Note Chief Complaint: Patient reports feeling anxious. Assessment/Plan: Assessment: 56-year-old female with history of hypertension, anxiety, and possible thrombocytopenia (when saw Hematology, platelet count within normal limits was told to take aspirin daily). Admitted yesterday for hypertension, chest pressure, and sinus tachycardia. Echocardiogram done on 08/31/2016 showed mild to moderate concentric LVH, EF normal, diastolic dysfunction, with no regional wall motion abnormalities noted. RV normal size and function, no pericardial effusion. Underwent ETT/MPI study today, exercise stress showed no signs of ischemia at peak exercise, but noted patient dropped SpO2 to 87% with exertion, returning to normal with rest. An occasional premature ventricular contraction and rest stress and recovery. MPI study showed a small area of anterior and septal ischemia associated with moderate infarct, EF was estimated at 64%, thought some septal hypokinesis. Patient has had 3 troponin levels within normal limits, BNP within normal limits. No anemia, normal TSH, toxin urine screening showing positive for opiates (patient did receive morphine in ED prior to screening), and benzos (patient on Xanax). Plasma pheo testing pending. Patient undergoing 24 hour urine to catch evaluate also for pheo, started at 6:30 a.m. this morning. Patient reports no further episodes chest pressure, remains mildly hypertensive with blood pressure at 163/85, sinus rhythm to sinus tachycardia with occasional PVC, no other malignant arrhythmias noted on continuous cardiac monitoring. Plan: 1. Chest pressure: Patient reporting chest pressure with episodes of flushing sensation, coming on spontaneously. Troponins negative x3, ETT showing no signs of ischemia peak exercise, MPI was positive for ischemia and possible infarct. Patient has had no further episodes of chest pressure since hospitalization. Have discussed with Dr. Burkett, feels patient should be further evaluated for cardiac ischemia, with coronary angiogram. Discussed risks and benefits of procedure, patient verbalized understanding and is wanting to proceed. Will schedule her to undergo procedure in a.m.. Until then , patient will continue on aspirin therapy, will hold off on starting her on beta-blockers at this time due to 24 hour urine sample may be affected by beta- blockers. If she does start having more chest pressure during the evening, or has any significant EKG changes, catheterization can be done more urgently. NPO after midnight. Fasting lipid panel in am 2. Sinus tachycardia: Patient noted to have more elevated heart rates, normal electrolyte renal function, no anemia, TSH within normal limits. Blood test for Pheochromocytoma pending, patient under going 24 hour urine for Pheochromocytoma. Cardiac catheterization in to be done to evaluate for possible ischemia in a.m.. Consider starting beta-blockers, carvedilol after 24 hour urine complete. 3. LVH/HTN: Noted on echocardiogram, patient currently on ELSA-inhibitor home dose, consideration of starting beta-blockers in a.m. again, unless patient's blood pressure is extremely hypertensive, will hold off on any medication change until 24 urine completed. 4. Anxiety: Patient to continue on home dose of Xanax. 09/01/16 16:17 Subjective: Patient denies of any further episodes of chest pressure, shortness of breath, palpitations, lightheadedness, orthopnea, near-syncope or syncopal events. Reviewed/Discussed With: hospitalist (Dr Graham), multidisciplinary team ( Patient EACU RN), other (Dr Burkett) Objective: Vital Signs (8 Hrs) Temp Pulse Resp BP Pulse Ox 09/01/16 13:17 36.9 C 82 16 163/85 H 89 L 09/01/16 10:05 155/91 H Intake/Output (24 Hrs) 08/31/16 09/01/16 09/02/16 05:59 05:59 05:59 Intake Total 500 Balance 500 Intake: IV Infused (ml) 500 Other: Weight 86.183 kg Number of Voids 1 Result Diagrams: 08/31/16 11:30 08/31/16 11:30 Cardiac Labs: Cardiac Lab Results (72 Hrs) 09/01/16 08/31/16 05:35 21:52 Troponin I < 0.012 < 0.012 - Physical Exam Constitutional: WDWN, no apparent distress, obese Ears, Nose, Mouth, Throat: moist mucous membranes Cardiovascular: regular rate and rhythm (Sinus rhythm sinus tachycardia), no murmurs, no rubs, no gallops, pulses symmetric bilat, No jugular vein distention , No carotid bruit Peripheral Pulses: 1+: dorsalis-pedis (R), dorsalis-pedis (L), 2+: carotid (R), carotid (L) Respiratory: clear to auscultate bilat, no crackles, no wheezes Gastrointestinal: normoactive bowel sounds Skin: no rashes, warm Neurologic: AAOx3 Psychiatric: cooperative, interactive, following commands ICD10 Worksheet Patient Problems: Problems Problem Status Onset Chest pain Acute
--- NOTE | 2016-09-01 17:31 | HOSPPROG ---
Hospitalist Progress Note Assessment/Plan: DIAGNOSIS: # Chest pain uncertain etiology # High suspicion for pheochromocytoma, or other endocrine or neuro humeral cause of her vital sign changes and symptoms # Uncontrolled hypertension # Sinus tachycardia # Abnormalities on myocardial perfusion scan imaging # Anxiety disorder with current anxiety At this point the cause of her symptoms remains uncertain. I am still highly suspicious for pheochromocytoma or other similar mechanism of her symptoms and findings. The abnormality reported yesterday in terms of an elevated cardiac troponin has been removed by the laboratory, and I suspect it was erroneously reported result. We now have all undetectable troponins in her lab profile. None less she is in her late 50s and has abnormalities on myocardial perfusion imaging, so it will be important to definitively rule out cardiac disease as she defines her chest pain as a pressure sensation. PLANS: -Angiography tomorrow -Continue 24 hour urine collection for catecholamines -Await plasma metanephrines -Will treat her anxiety at this time -Once her 24 urine collection is completed we can start her on some beta- kota for the blood pressure and tachycardia I have reviewed her case in detail today with Dr. Man Burkett and with Jose Antonio Booth SUBJECTIVE: she remains fairly anxious. Today she continues to intermittently have symptoms of facial and head flushing, as well as flushing sensation in the palms associated with mottled appearance of the palms. She has not really had chest pain per se today. She did well on the exercise treadmill. OBJECTIVE Vitals reviewed: Continues to have tachycardia and hypertension air route controller: Sinus tachycardia intermittently on my review Exam: alert oriented but somewhat anxious skin warm dry color ok resps not labored lungs clear BSs heart regular abd soft nondistended nontender, bowel sounds present limbs warm, no edema iv site ok Exercise treadmill stress test went to a good level of exercise with pulse up to the 160s with no chest pain or abnormal EKG changes Myocardial perfusion imaging however shows several areas of decreased perfusion suggesting potentially prior infarctions Laboratory data: Troponins all normal now, the previously reported elevated troponin has been removed from her profile the laboratory Urine drug screen positive for the benzodiazepines narcotics that she got in the ER yesterday but not positive for anything else, most notably negative for cocaine and amphetamines Objective: Vital Signs Temp Pulse Resp BP Pulse Ox 36.5 C 85 16 145/87 H 94 09/01/16 16:45 09/01/16 16:45 09/01/16 16:45 09/01/16 16:45 09/01/16 16:45 08/31/16 09/01/16 09/02/16 06:59 06:59 06:59 Intake Total 500 Balance 500 PT 12.3 SEC (12.0-15.0) 08/31/16 11:30 INR 0.92 (0.83-1.16) 08/31/16 11:30 ICD10 Worksheet Patient Problems: Problems Problem Status Onset Chest pain Acute
[2016-09-01] MEDS ORDERED: ASPIRIN 81 MG CHEWABLE TAB PO SCH (21:00)
[2016-09-02 05:48] LABS: % IMMATURE GRANULYOCYTES 0.4 % (0.0-1.1); ABSOLUTE IMMATURE GRANULOCYTES 0.02 10^3/uL (0.00-0.10); ADD DIFF? NO; ADD MORPH? NO; ADD SCAN? NO; ATYPICAL LYMPHOCYTE FLAG 0 (0-99); FRAGMENT RBC FLAG 0 (0-99); HEMATOCRIT 48.6 % (38.0-47.0); HEMOGLOBIN 16.6 g/dL (12.6-16.3); LEFT SHIFT FLG 0 (0-99); LIPEMIA HEMOLYSIS FLAG 90 (0-99); MEAN CELL HEMOGLOBIN 34.1 pg (27.9-34.1); MEAN CELL HEMOGLOBIN CONCENTR. 34.2 g/dL (32.4-36.7); MEAN CELL VOLUME 99.8 fL (81.5-99.8); MEAN PLATELET VOLUME 8.7 fL (8.7-11.7); PLATELET CLUMPS FLAG 10 (0-99); PLATELET COUNT 328 10^3/uL (150-400); RED BLOOD CELL COUNT 4.87 10^6/uL (4.18-5.33); RED CELL DISTRIBUTION WIDTH 13.2 % (11.5-15.2)
[2016-09-02 05:54] LABS: APTT 25.8 SEC (23.0-38.0); INR 0.91 (0.83-1.16); PROTIME(PATIENT) 12.1 SEC (12.0-15.0)
[2016-09-02] MEDS ORDERED: DIAZEPAM 5 MG TAB PO ONE (06:00)
[2016-09-02] MEDS ORDERED: diphenhydrAMINE 25 MG CAP PO ONE ×2 (06:00→08:03)
[2016-09-02] MEDS ORDERED: NITROGLYCERIN 0.4 MG BTL SL PRN (06:00)
[2016-09-02] MEDS ORDERED: NS 1,000 ML IV ONE (06:00)
[2016-09-02] MEDS ORDERED: ASPIRIN EC 325 MG TAB PO ONE ×2 (06:32→08:03)
[2016-09-02] MEDS ORDERED: FAMOTIDINE 20 MG TAB PO ONE (06:32)
[2016-09-02] MEDS: LISINOPRIL 20 MG TAB PO SCH (07:00)
[2016-09-02 07:02] LABS: ANION GAP 8 mEq/L (8-16); CALCIUM 9.6 mg/dL (8.5-10.4); CARBON DIOXIDE 27 mEq/l (22-31); CHLORIDE 106 mEq/L (97-110); CHOLESTEROL 279 mg/dL (140-220); CHOLESTEROL/HDL RATIO 2.82 RATIO (1.00-4.44); CREATININE 0.8 mg/dL (0.6-1.0); GLOMERULAR FILTRATION RATE > 60; GLUCOSE 92 mg/dL (70-100); HIGH DENSITY LIPOPROTEIN 99 mg/dL (40-85); LDL/HDL RATIO 1.57 RATIO (1.00-3.22); LOW DENSITY LIPOPROTEIN 155 mg/dL (80-100); MAGNESIUM 2.1 mg/dL (1.6-2.3); NON-HIGH DENSITY LIPOPROTEIN 180 mg/dL (90-129); POTASSIUM 4.2 mEq/L (3.5-5.2); SODIUM 141 mEq/L (134-144); TRIGLYCERIDE 127 mg/dL (35-135); VERY LOW DENSITY LIPOPROTEINS 25 mg/dL (8-25)
[2016-09-02] MEDS ORDERED: FAMOTIDINE 20 MG TAB ONE (08:03)
[2016-09-02] MEDS ORDERED: DIAZEPAM 5 MG TAB ONE (08:03)
[2016-09-02] MEDS ORDERED: LIDOCAINE 1% 30 ML SDV ONE (08:35)
[2016-09-02] MEDS ORDERED: fentaNYL 100 MCG/2 ML INJ ONE (08:35)
[2016-09-02] MEDS ORDERED: MIDAZOLAM 2 MG/2 ML VIAL ONE ×2 (08:36→09:45)
[2016-09-02] MEDS ORDERED: IOPAMIDOL (ISOVUE 370) 100 ML BTL IV ONE (08:36)
[2016-09-02] MEDS ORDERED: CARVEDILOL 3.125 MG TAB PO ONE (10:23)
[2016-09-02] MEDS ORDERED: ATROPINE SULFATE 1 MG/10 ML SYR IVP PRN (10:25)
[2016-09-02] MEDS ORDERED: ONDANSETRON 4 MG/2 ML VIAL IVP PRN (10:25)
[2016-09-02] MEDS ORDERED: HYDROCODONE/APAP 5/325 TAB PO PRN (10:25)
--- NOTE | 2016-09-02 12:42 | PDCARPN ---
Cardiology Progress Note Chief Complaint: Reports relief after finishing angiogram. Assessment/Plan: Assessment: 56-year-old female with history of hypertension, anxiety, and possible thrombocytopenia (when saw Hematology, platelet count within normal limits was told to take aspirin daily). Admitted (08/31/2016) for hypertension, chest pressure, and sinus tachycardia. CTA of chest done in the ED showed no PE, dissection, or aneurysm. Echocardiogram done on 08/31/2016 showed mild to moderate concentric LVH, EF normal, diastolic dysfunction, with no regional wall motion abnormalities noted. RV normal size and function, no pericardial effusion. Underwent ETT/MPI study (09/01/2016), exercise stress showed no signs of ischemia at peak exercise, but noted patient dropped SpO2 to 87% with exertion, returning to normal with rest. An occasional premature ventricular contraction and rest stress and recovery. MPI study showed a small area of anterior and septal ischemia associated with moderate infarct, EF was estimated at 64%, thought some septal hypokinesis. Patient has had 3 troponin levels within normal limits, BNP within normal limits. No anemia, normal TSH, toxin urine screening showing positive for opiates (patient did receive morphine in ED prior to screening), and benzos (patient on Xanax). Plasma pheo testing pending. 24 hour urine for pheo completed, result pending Patient underwent coronary catheterization today for abnormal stress test, reporting no chest pain throughout the night. Coronary angiogram showing normal coronary arteries, normal LV systolic function. The fasting lipid panel done today, cholesterol 279, LDL of 155. Plan: 1. Chest pressure: Patient reports no further episodes chest pressure, CTA of the chest was negative for PE, dissection, aneurysm. Positive stress test, underwent coronary catheterization this morning showing no disease. Normal LV systolic function. No further workup at this time. 2. Sinus tachycardia: Patient noted to be tachycardic since admission to hospital, averaging heart rate in 85 stew 120s, occasional PVC. No CAD, no PE. Normal electrolyte and renal function, no anemia, normal TSH. Pheochromocytoma plasma and urine testing pending. Will start on beta-kota to help rate control, carvedilol 3.125 mg p.o. twice daily. 3. LVH/HTN: Noted on echocardiogram, patient currently on ELSA-inhibitor, continues to have elevated blood pressures, started on carvedilol as above. 4. Hyperlipidemia: Patient has multiple cardiac risk factors, elevated LDL 155 , discussed with Dr. Burkett, will start patient on atorvastatin, 20 mg p.o. at bedtime, will need a fasting lipid and liver panel in 6-8 weeks to evaluate therapy. Patient has been encouraged healthy diet, routine exercise and weight loss. 5. Anxiety: Patient to continue on home dose of Xanax. After patient has completed recommended bedrest time, from cardiac standpoint, would be fine for patient to be discharge. Would like her to follow up in our office in the next 2 weeks to evaluate her therapy. I have made an appointment for her. I have went over post cardiac catheterization discharge instructions. Have discussed new medications (atorvastatin and carvedilol) with patient, including potential side effects. 09/02/16 12:46 Subjective: Patient denies of any chest pain or shortness of breath, reports no palpitations , or lightheadedness. Does report ongoing anxiety. Reviewed/Discussed With: hospitalist (Dr Graham), other (Dr Burkett) Objective: Vital Signs (8 Hrs) Temp Pulse Resp BP Pulse Ox 09/02/16 07:30 37.0 C 91 12 146/90 H 93 09/02/16 07:00 142/93 H 09/02/16 06:00 37.1 C 75 18 142/93 H 95 Result Diagrams: 09/02/16 05:30 09/02/16 05:30 Cardiac Labs: Cardiac Lab Results (72 Hrs) 09/01/16 08/31/16 05:35 21:52 Troponin I < 0.012 < 0.012 - Physical Exam Constitutional: WDWN, obese Cardiovascular: regular rate and rhythm (Sinus rhythm/sinus tach on monitor.), no murmurs, no rubs, no gallops, pulses symmetric bilat, No jugular vein distention Peripheral Pulses: 2+: carotid (R), carotid (L), dorsalis-pedis (R), dorsalis- pedis (L) Respiratory: clear to auscultate bilat, no crackles, no wheezes Gastrointestinal: normoactive bowel sounds Skin: warm, no edema, other (Right groin site, catheter insertion site, with no redness swelling drainage ecchymosis or hematoma.) Neurologic: AAOx3, CN II-XII grossly intact Psychiatric: cooperative, interactive, following commands ICD10 Worksheet Patient Problems: Problems Problem Status Onset Chest pain Acute
[2016-09-02 14:53] VITALS: BP 123/86; PULSE 89; RESP 17; TEMP 97.2; O2SAT 93
--- NOTE | 2016-09-02 17:45 | PDDCSUM ---
Discharge Summary Discharge Summary: DISCHARGE SUMMARY NOTE DISCHARGE DIAGNOSES: # High suspicion for pheochromocytoma # Noncardiac chest pain, ruled out [place] # Normal coronary angiography # Recurrent episodes of facial flushing, chest pain, anxiety in the setting of uncontrolled hypertension and sinus tachycardia # Uncontrolled hypertension with finding of LVH on echocardiogram # Hypercholesterolemia CONSULTANTS: Dr. Man Burkett PROCEDURES: Echocardiogram Myocardial perfusion imaging Coronary angiography HOSPITAL COURSE SUMMARY:This patient comes to the hospital with episodes of facial flushing, mottling of skin on the hands, anxiety, sinus tachycardia, and hypertension with chest pain. These episodes occur in paroxysms the can go on for a week or 2 at a time, and have been occurring over some years. They are not triggered by anything she can think of. With chest pain described as a pressure we did a cardiac workup in essentially found no cardiac abnormalities other than some LVH which may be caused by her ongoing uncontrolled hypertension. At this time suspicion for pheochromocytoma exist. She has had here blood sample sent for plasma metanephrines which are pending, and a 24 hour urine for catecholamines has been collected and is also pending. She is stable for discharge but we have started her on some beta-kota in addition to her Fidel inhibitor for the blood pressure and tachycardia, and encouraged her to follow up with primary care and cardiology within 2 weeks to review the results of her laboratory data and to see how she is doing with blood pressure in any medication side effects. PENDING TEST RESULTS: Plasma metanephrines and 24 hour urine for catecholamines MEDICATION CHANGES: Addition of Coreg and statin medicine FOLLOW-UP PLAN: Dr. Chelsie Vital 10-14 days Jose Antoniothomas Booth at [facility] in 2 weeks Greater than 35 minutes bedside and care coordination time today
[2016-09-02] MEDS ORDERED: CARVEDILOL 3.125 MG TAB PO SCH (18:00)
--- NOTE | 2016-09-02 18:49 | PDGENHP ---
History and Physical History and Physical: HISTORY AND PHYSICAL ADMISSION NOTE CC:Chest pain with other associated symptoms HISTORY: This patient comes in today because of concern about chest pain. However she tells me a story of this as a recurrent syndrome that she has had over numerous years. She has periods of symptoms that go on with daily episodes for a week or 2 and then she will have any symptoms for months. The episodes start with facial flushing and flushing sensation of both hands with some mottling of the palms of her hands. She gets a pressure in her chest and sometimes nausea and feels very anxious. This is associated with higher blood pressures and fast heart rates sometimes a pounding in her chest. this current round of symptoms started 2 weeks ago. She came into urgent care today and is sent here for further assessment and care. On initial evaluation in urgent care she was fairly hypertensive and had a sinus tachycardia but no fever. She does not get short of breath with these episodes. She has never noticed anything that to particular trigger for these episodes. In between the symptomatic times, she feels quite well and healthy without anxiety, pain or other symptoms. ROS: 10 systems review otherwise unrevealing PAST MEDICAL HISTORY: vitamin-D deficiency Chronic hypertension no endocrine diseases FAMILY MEDICAL HISTORY: No cancers, tumors, endocrine diseases and no heart disease SOCIAL HISTORY: no use of tobacco, cocaine, meth or amphetamines MEDICATIONS: reconciled by the pharmacist in the electronic record and I reviewed the list and ordered appropriate medicines PHYSICAL EXAMINATION: Vital Signs: some tachycardia and hypertension otherwise normal Manager N[place]: sinus tachycardia Examination: General: alert, oriented, good mentation, mildly anxious Skin: warm, dry, good color, no rash HEENT: normal Neck: no mass or jvd Resps: relaxed Lungs: clear breath sounds Heart: regular, no murmur Abdomen: soft, nondistended, nontender, +BS, no mass Upper Extremities: normal Lower Extremities: no edema, warm No Bleeding or bruising Neurologic: normal speech/language, normal facilities clerk, no focal weakness IV site: looks normal LABORATORY DATA: negative troponin other labs unremarkable RADIOLOGY STUDIES: CT of chest done in the ER, my review of the images: There is no pulmonary embolism, no heart failure, no infiltrates, no masses or effusions ASSESSMENT: # chronic paroxysms of episodes of facial flushing, chest pain, tachycardia, anxiety # high suspicion for pheochromocytoma or other endocrine or neurovascular syndrome due to the above # initial cardiac workup and CT chest in the ER negative PLANS: Observe on nursing home director Cycle troponins Plan cardiac stress test in the morning Cardiology has been consulted by the ER and will see the patient I have asked for plasma metanephrines and 24 hour urine for catecholamines She will need more intensive blood control therapy over time, but will wait until we have the mid afternoon urine samples collected I have reviewed the patient's case in detail with Dr.Deborah Cano I have reviewed the patient's past medical records as part of this assessment, including previous hospital and emergency records including laboratory data and CT scan images
[2016-09-02] MEDS ORDERED: ATORVASTATIN CALCIUM 20 MG TAB PO SCH (21:00)
[2016-09-03 08:53] LABS: METANEPHRINES PLASMA METAP 0.23 nmol/L (<0.50); NORMETANEPHRINE PLASMA METAP 0.37 nmol/L (<0.90)
== END 2016-09-02 14:53 | disposition home or self-care (01) | DRG 645 ==
LOC: INTOOBSV 13:12 → F1N 14:24 → OBSVTOIN 17:44
PROVIDERS: ADMIT Internal Medicine; ATTEND Internal Medicine
PROC: B2151ZZ Fluoroscopy of Left Heart using Low Osmolar Contrast (ICD-10-PCS; principal; 2016-09-02)
PROC: 4A023N7 Measurement of Cardiac Sampling and Pressure, Left Heart, Percutaneous Approach (ICD-10-PCS; principal; 2016-09-02)
PROC: B2111ZZ Fluoroscopy of Multiple Coronary Arteries using Low Osmolar Contrast (ICD-10-PCS; principal; 2016-09-02)
DX: D35.00 Benign neoplasm of unspecified adrenal gland (principal); R07.89 Other chest pain; I10 Essential (primary) hypertension; E78.5 Hyperlipidemia, unspecified; R00.0 Tachycardia, unspecified; F41.9 Anxiety disorder, unspecified
CPT/HCPCS: 80307; 82384-90; 82947-QW; 83835-90; 84481-90; 96374; A9500; C1760; G0378; G0480; J1644; J2250; J2405; J2785; J3010; Q9967